=== PATIENT | male | born 1970 | race Caucasian/White ===

== ENCOUNTER 2019-05-12 09:12 | Day surgery (SDC) | payer OTHER ==
[2019-05-11 10:07] VITALS: BMI 24.3
[~2019-05-12 09:12] MED LIST: LACTATED RINGERS 1,000 ML IV SCH
[2019-05-12 10:10] VITALS: TEMP 97.5
[2019-05-12] MEDS ORDERED: LIDOCAINE 1% 20 ML VIAL (10MG/ML) FOR IV START INTRADERMA ONE (10:13)
[2019-05-12] MEDS ORDERED: PROPOFOL 10 MG/ML 20 ML VIAL IV ONE (10:43)
--- NOTE | 2019-05-12 11:02 | P.PCN ---
Date of Procedure: 05/12/19 Procedure(s) Performed: BRIEF HISTORY: Patient is a 48-year-old pleasant white male scheduled for an elective colonoscopy as a part of screening for colorectal neoplasia. His mother was diagnosed with colon cancer at age 68. PROCEDURE PERFORMED: Colonoscopy with biopsy. PREOPERATIVE DIAGNOSIS: Screening for colon cancer/family history of colon cancer. IV sedation per Anesthesia. PROCEDURE: After informed consent was obtained, the patient, was brought into the endoscopy unit. IV sedation was administered by Anesthesia under continuous monitoring. Digital rectal examination was normal. Initially the Olympus CF-160 flexible video colonoscope was then inserted in the rectum, gradually advanced into the cecum without any difficulty. Careful examination was performed as the scope was gradually being withdrawn. Ileocecal valve and the appendiceal orifice were visualized and appeared normal. Prep was excellent. Mucosa of the cecum, ascending colon, transverse colon, descending colon, sigmoid colon, and rectum appeared normal. In the mid rectum there was a 5 mm sessile polyp that was removed by cold biopsy. Retroflexion was performed in the rectum and no lesions were seen. The patient tolerated the procedure well. IMPRESSION: 5 mm sessile mid rectal polyp status post removal by cold biopsy. Rest of the colon appeared normal RECOMMENDATIONS: Findings of this examination were discussed with the patient as well as his family. He was advised to follow with the biopsy results. He can have a repeat colonoscopy in 5 years because of history of colon polyps and family history of colon cancer..
[2019-05-12 11:12] VITALS: RESP 18
[2019-05-12 11:29] VITALS: BP 125/90; PULSE 74
== END 2019-05-12 11:38 | disposition home or self-care (01) ==
LOC: ORWHC2ENDO 09:12
PROVIDERS: ATTEND Internal Medicine Gastroenterology
DX: Z12.11 Encounter for screening for malignant neoplasm of colon (principal); Z80.0 Family history of malignant neoplasm of digestive organs; K62.1 Rectal polyp; F41.9 Anxiety disorder, unspecified; Z79.899 Other long term (current) drug therapy
CPT/HCPCS: 45380; 88305

== ENCOUNTER → 2019-05-15 | Outpatient (CLI) | payer OTHER ==
--- NOTE | 2019-05-17 20:17 | MR ---
EXAMINATION TYPE: MR wrist LT wo con DATE OF EXAM: 05/15/2019 COMPARISON: None HISTORY: Lt wrist pain/limited movement x 6 mos, no trauma Standard multiplanar, multisequence MRI departmental protocol Multiplanar, multisequence images of the right wrist were acquired. FINDINGS: The carpal bones appear intact. Joint spaces are fairly normal. There is mild wrist joint e ffusion. The collateral ligaments appear intact. Triangular cartilage is intact. The flexor and exten sor tendons appear intact. I see no focal bone destruction. There is some spurring and mild subchondr al cystic change at the first carpal metacarpal joint. There is narrowing of the first carpometacarpa l joint space. There is subcutaneous edema over the anterior carpus. IMPRESSION: Mild anterior subcutaneous edema. Mild wrist joint effusion consistent with nonspecific synovitis. No fracture. Moderate osteoarthritis at the first carpometacarpal joint. Small synovial cysts noted lat eral to the first carpometacarpal joint. No evidence of avascular necrosis.
== END | disposition home or self-care (01) ==
LOC: RADMRIMAIN 07:08
PROVIDERS: ATTEND Physician Assistant Medical
DX: M18.12 Unilateral primary osteoarthritis of first carpometacarpal joint, left hand (principal); M71.332 Other bursal cyst, left wrist

== ENCOUNTER → 2021-07-17 | Outpatient (CLI) | payer MEDICARE, OTHER ==
--- NOTE | 2021-07-17 12:17 | MR ---
EXAMINATION TYPE: MR lumbar spine wo con DATE OF EXAM: 07/17/2021 COMPARISON: None HISTORY: Low back pain on left side for 1 year. History of surgery . TECHNIQUE: Multiplanar, multisequence images of the lumbar spine were acquired without IV contrast. L1-L2: Minimal disc bulge contacts the anterior thecal sac. No significant foraminal encroachment. L2-L3: No evident disc herniation. No significant foraminal encroachment. L3-L4: Posterior disc bulge effaces the anterior thecal sac. There is some facet arthropathy change p resent. Circumferential extension endplate disc complex encroaches somewhat on the inferior aspect of the neural foramina. L4-L5: Posterior broad-based disc bulge effaces the anterior thecal sac. There is some facet arthropa thy change with hypertrophy of the ligamentum flavum causing some posterior lateral mass effect on th e thecal sac, circumferential extension endplate disc complex encroaches somewhat on the neural dylon en greater on the right than on the left. L5-S1: Posterior central disc protrusion contacts anterior thecal sac and possibly proximal S1 nerve roots. There is some facet arthropathy changes encroaching towards the right neural foramen greater t quinonez left. Circumferential extension of endplate disc complex causes some foraminal encroachment bilat erally Lumbar segments are intact. No paraspinal masses are identified. Conus medullaris has a normal appe arance. Suspect vertebral plasty changes within the L1 vertebral body for prior fracture, low signal is present in the medullary aspect of the vertebral body on T1 and T2-weighted sequences. There is mu ltilevel spondylosis, there is endplate discogenic marrow signal change. Loss of disc height and sign al is present at L5-S1, L4-5, L3-4. There is no significant spinal stenosis. Posterior fusion changes are present at T12-L2, susceptibility artifact is present due to patient's transpedicular screws. IMPRESSION: There are degenerative disc changes, facet arthropathy, postop changes, multilevel foraminal encroach ment as described.
== END | disposition home or self-care (01) ==
LOC: RADMRIMAIN 09:06
PROVIDERS: ATTEND Physician Assistant Medical
DX: M51.36 Other intervertebral disc degeneration, lumbar region (principal); M47.816 Spondylosis without myelopathy or radiculopathy, lumbar region; Z98.1 Arthrodesis status
CPT/HCPCS: 72148

== ENCOUNTER 2021-08-01 09:37 | Day surgery (SDC) | payer OTHER ==
[2021-07-26 15:43] VITALS: BMI 25.0
[~2021-08-01 09:37] MED LIST changes: +ACETAMINOPHEN TAB 500 MG TAB PO PRN; +DEXAMETHASONE SOD PHOSPHATE 4 MG/ML 1 ML VIAL IV ONE; +HEPARIN SODIUM,PORCINE/PF 5,000 UNIT/0.5 ML SYRINGE SQ PRN; +LIDOCAINE 1% (10MG/ML) FOR IV START INTRADERMA PRN; +MORPHINE SULFATE 4 MG/ML SYRINGE IV PRN; +ONDANSETRON 4 MG/2 ML VIAL IVP ONE; +SCOPOLAMINE 1.5MG/72HR PATCH TRANSDERM ONE
--- NOTE | 2021-08-01 10:20 | P.GSHP ---
History of Present Illness H&P Date: 08/01/21 Chief Complaint: Left inguinal hernia This is a 51-year-old male who presents today for laparoscopic robotic system repair of Left internal hernia. Past Medical History Additional Past Medical History / Comment(s): sciatica rt. INGUINAL HERNIA. BACK PAIN-SEEING NEUROLOGIST History of Any Multi-Drug Resistant Organisms: None Reported Past Surgical History: Back Surgery, Orthopedic Surgery Additional Past Surgical History / Comment(s): rt knee scope Past Anesthesia/Blood Transfusion Reactions: No Reported Reaction Smoking Status: Never smoker - Past Family History Father Family Medical History: Cancer Mother Family Medical History: Cancer Medications and Allergies Home Medications Medication Instructions Recorded Confirmed Type Gabapentin [Neurontin] 900 mg PO DAILY 05/11/19 08/01/21 History HYDROcodone/APAP 7.5-325MG [[place]stone 1 tab PO Q6HR PRN 07/26/21 08/01/21 History 7.5-325] Allergies Allergy/AdvReac Type Severity Reaction Status Date / Time No Known Allergies Allergy Verified 08/01/21 10:03 Surgical - Exam Vital Signs Temp Pulse Resp BP Pulse Ox 98.5 F 74 16 135/90 98 08/01/21 10:01 08/01/21 10:01 08/01/21 10:01 08/01/21 10:01 08/01/21 10:01 - General well developed, well nourished, no distress - Eyes PERRL - ENT normal pinna, normal nares - Neck no masses - Respiratory normal expansion - Cardiovascular Rhythm: regular - Abdomen Abdomen: soft, non tender Hernia: inguinal (Left inguinal) Assessment and Plan Assessment: Left internal hernia. We'll perform laparoscopic robotic system repair.
[2021-08-01] MEDS ORDERED: BUPIVACAINE (PF) 0.5% 30 ML VIAL SQ ONE ×2 (10:21→12:18)
[2021-08-01] MEDS ORDERED: MIDAZOLAM 2 MG/2 ML VIAL IVP ONE (10:49)
[2021-08-01] MEDS ORDERED: PROPOFOL 10 MG/ML 20 ML VIAL IV ONE (11:51)
[2021-08-01] MEDS ORDERED: ROCURONIUM 10 MG/ML (5 ML VIAL) IV ONE (11:51)
[2021-08-01] MEDS ORDERED: SUCCINYLCHOLINE CHLORIDE 100 MG/5 ML SYR IV ONE (11:51)
[2021-08-01] MEDS ORDERED: ROPIVACAINE 5 MG/ML 30 ML VIAL ONE (11:51)
[2021-08-01] MEDS ORDERED: KETAMINE 10 MG/ML 20 ML VIAL ONE (11:51)
[2021-08-01] MEDS ORDERED: LIDOCAINE 1% INJ 10MG/ML (20 ML MDV) ONE (11:51)
[2021-08-01] MEDS ORDERED: KETOROLAC 15 MG/ML 1 ML VIAL ONE (11:51)
[2021-08-01] MEDS ORDERED: NEOSTIGMINE 1 MG/ML 10 ML VIAL ONE (11:51)
[2021-08-01] MEDS ORDERED: HYDROmorphone (PF) 1 MG/ML ONE (11:51)
[2021-08-01] MEDS ORDERED: GLYCOPYRROLATE 0.2 MG/ML 2 ML VIAL ONE (11:51)
[2021-08-01] MEDS ORDERED: DEXAMETHASONE SOD PHOSPHATE 4 MG/ML 1 ML VIAL ONE (11:51)
[2021-08-01] MEDS ORDERED: LACTATED RINGERS 1,000 ML IV ONE (12:29)
--- NOTE | 2021-08-01 12:51 | P.OP ---
Date of Procedure: 08/01/21 Preoperative Diagnosis: Left inguinal hernia Postoperative Diagnosis: Left inguinal hernia Procedure(s) Performed: Laparoscopic robotic system repair of left we will hernia Excision of left cord lipoma Anesthesia: RICARDO Surgeon: Toan Marques Estimated Blood Loss (ml): 10 Pathology: other (Cord lipoma) Condition: stable Disposition: PACU Description of Procedure: The patient's placed on the operating table in the supine position. The patient received general anesthesia. The patient's abdomen was prepped and draped in usual sterile fashion. The skin was anesthetized 1% local Xylocaine at the incision sites. Using an 11 blade a skin incision was made at the umbilicus. The fascia was grasped with a Rosales and then the peritoneal cavity was entered with the Veress needle. Position of the Veress needle was confirmed with a positive drop test. After adequate insufflation a 5 mm trocar was placed into the peritoneal cavity. The Laparoscope was placed the peritoneal cavity. And a robotic 8 mm trocar was placed in the right lateral position and then another 8 mm robotic trochars placed in the left lateral position. The original 5 mm trocar was exchanged for a 12 mm trocar. The patient was placed in reverse Trendelenburg and then the patient was docked to the robot. Next the peritoneum over top of the hernia was incised and then using blunt and sharp dissection and electrocautery the hernia sac was dissected free from the floor of the inguinal canal. The cord lipoma was dissected free and sent to pathology. The hernia sac was completely reduced into the peritoneal cavity. And then using the Pro practicing dermatologist mesh the hernia was repaired. The peritoneum was then sutured with 20V lock suture. The patient was then undocked the robot. The needle was withdrawn from the peritoneal cavity. The umbilical trocar site was closed with 0 Ethibond suture. The skin was closed interrupted 3-0 Monocryl suture. Dermabond dressing was applied. Patient was sent to recovery in stable condition.
[2021-08-01 13:06] VITALS: TEMP 97.1
[2021-08-01 13:39] VITALS: RESP 16
[2021-08-01 14:00] VITALS: BP 148/91; PULSE 65
== END 2021-08-01 14:48 | disposition home or self-care (01) ==
LOC: OR 09:37
PROVIDERS: ATTEND Surgery
DX: K40.90 Unilateral inguinal hernia, without obstruction or gangrene, not specified as recurrent (principal); Z80.9 Family history of malignant neoplasm, unspecified
CPT/HCPCS: 49650; 64999; 88304; C1781; J2250; J1100; J2710; J0690; J2405; J2001; J1170; J2795; J1885; J0330; J2704; J1644

== ENCOUNTER → 2022-01-31 | Outpatient (CLI) | payer OTHER ==
--- NOTE | 2022-01-31 10:41 | CT ---
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 Automated Exposure Control for Dose Reduction was Utilized. TECHNIQUE: CT scan of the thorax is performed following without and with IV Contrast, patient inject ed with 100 mL of Isovue 300. FINDINGS: LUNGS: The lungs are grossly clear, there is no concerning parenchymal mass or nodule identified. T here is no pleural effusion or pneumothorax seen. The tracheobronchial tree is patent. MEDIASTINUM: There are no greater than 1 cm hilar or mediastinal lymph nodes. No cardiomegaly or pe ricardial effusion is seen. There is 4 vessel origin from the aortic arch which is normal variant. S ome coronary artery calcification is present which is noted marker for underlying coronary artery dis ease. OTHER: Liver is diffusely low dense consistent with diffuse fatty infiltration. Postsurgical change T 12-L2 to level is identified. Vertebroplasty mild compression type fracture L1 level noted. Metallic BB placed at level of clinical concern anterior right lower rib axial image 50 series 3 and shows superior and lateral to this coronal series 5 image 13. This is at the level of the anterior ri ght sixth rib. More lateral BB is near the junction of the ossified and nonossified or cartilaginous portion of the rib. There is no obvious solid or cystic mass or fluid collection at this level. The n onossified or cartilaginous portion of this rib shows no suspicious findings different from adjacent ribs. No suspicious enhancement or enhancing masses noted. No bony destruction is evident. IMPRESSION: No suspicious mass or fluid collection. No suspicious focal osseous lesion.
== END | disposition home or self-care (01) ==
LOC: RADCTMAIN 09:29
PROVIDERS: ATTEND Family Medicine
DX: D16.7 Benign neoplasm of ribs, sternum and clavicle (principal)
CPT/HCPCS: 71270; Q9967